=== PATIENT | male | born 1945 | race Caucasian/White ===

== ENCOUNTER 2019-07-08 15:16 | Emergency (ER) | payer OTHER | END 2019-07-08 15:20 | disposition left against medical advice (07) | LOC: ER 15:19 | DX: H57.12 Ocular pain, left eye (principal); Z53.21 Procedure and treatment not carried out due to patient leaving prior to being seen by health care provider ==

== ENCOUNTER 2019-07-08 18:02 | Emergency (ER) | payer OTHER ==
[~2019-07-08] VITALS: Ht 172.7 cm; Wt 81.6 kg
[2019-07-08 21:30] LABS: Monocytes # (auto) 0.5 uL; Neutrophils # (auto) 4.2 uL; Nucleated Red Blood Cells % 0.1 %
[2019-07-08 21:32] LABS: Basophils # (auto) 0.1 uL; Basophils % (auto) 0.7 % (0.0-2.0); Eosinophils # (auto) 0.2 uL; Eosinophils % (auto) 2.3 % (0.0-7.0); Hematocrit 43.9 % (41.0-53.0); Hemoglobin 15.4 g/dL (13.5-17.5); Lymphocytes # (auto) 2.6 uL; Lymphocytes % (auto) 34.5 % (10.0-50.0); Mean Corpuscular Hemoglobin 34.7 pg (28.0-32.0); Mean Corpuscular Hgb Conc. 34.9 g/dL (32.0-36.0); Mean Corpuscular Volume 99.3 fL (80.0-100.0); Monocytes % (auto) 7.2 % (0.0-12.0); Neutrophils % (auto) 55.3 % (37.0-80.0); Platelet Count (auto) 288 10^3/uL (140-450); Red Blood Cells 4.42 10^6/uL (4.5-5.90); Red Cell Distribution Width 13.5 % (11.8-14.3); White Blood Cell 7.6 10^3/uL (4.4-10.8)
[2019-07-08 21:48] LABS: Albumin 3.8 g/dL (3.4-5.0); BUN/Creatinine Ratio 22.1; Calcium 9.1 mg/dL (8.5-10.1); Potassium 4.1 mmol/L (3.5-5.1)
[2019-07-08 21:50] LABS: Bilirubin, Total 0.3 mg/dL (0.2-1.0); Total Protein 7.4 g/dL (6.4-8.2)
[2019-07-08 22:15] VITALS: BP 140/87
== END 2019-07-08 22:37 | disposition home or self-care (01) ==
LOC: ER 18:02
DX: H33.22 Serous retinal detachment, left eye (principal); Z88.1 Allergy status to other antibiotic agents
CPT/HCPCS: 36415; 70450; 80053; 85025